=== PATIENT | male | born 1970 ===

== ENCOUNTER → 2021-04-08 | Outpatient (CLI) | payer BC ==
[2021-04-10 06:07] LABS: RPR Non Reactive (Non Reactive)
== END | disposition home or self-care (01) ==
LOC: LAB 06:59
PROVIDERS: ATTEND Nurse Practitioner Family
DX: N39.0 Urinary tract infection, site not specified (principal)
CPT/HCPCS: 36415; 86592; 86703; 86706; 86803; 87086; 87340